=== PATIENT | female | born 2000 | race Caucasian/White ===

== ENCOUNTER 2022-10-23 00:23 | Emergency (ER) | payer BC ==
[~2022-10-23] VITALS: Ht 157.5 cm; Wt 54.5 kg
[2022-10-23 00:29] VITALS: BP 113/80
== END 2022-10-23 02:34 | disposition left against medical advice (07) ==
LOC: ER 00:24
DX: R07.9 Chest pain, unspecified (principal); Z53.21 Procedure and treatment not carried out due to patient leaving prior to being seen by health care provider